=== PATIENT | male | born 1945 | race Caucasian/White ===

== ENCOUNTER 2021-05-14 08:40 | Day surgery (SDC) | payer OTHER, MEDICAID ==
[~2021-05-14] VITALS: Ht 175.3 cm; Wt 79.0 kg
[~2021-05-14 08:40] MED LIST: ACET325T21 PO; ALEN70TA71 PO; AMLO-186 PO; APIX5TAB PO; ATOR40TA59 PO; BACL10TA PO; BREX2TAB PO; BUDE0.5A NEB; BUME1TAB3 PO; CIPROFLOXACIN 0.3% OPHTH SOLUTION 5ML BOTTLE. OS ONE; DOCU-148 PO; DULO30CA2 PO; Diclofenac Sodium TP; FERR325T72 PO; GABA300C18 PO; IPRA3AMP29 NEB; ISOS30TA68 PO; IV RINGERS,LACTATED 1000ML 1,000 ML IV SCH; LEVO750T5 PO; LIDOCAINE 2% JELLY 6ML IN APPLICATOR. OS ONE; LOSA-73 PO; MAGN400T5 PO; METO50TA6 PO; OXYC15TA61 PO; PANT40TA77 PO; PRAM0.255 PO; PROPARACAINE 0.5% OPHTH SOLUTION 15ML BOTTLE. OS ONE; SULF500T PO; TIZA4TAB2 PO; TOFA11TA PO; TRAZ-123 PO
[2021-05-14] MEDS: CYCLOPENTOLATE 2% OPHTH SOLUTION 2ML BOTTLE. OS SCH ×3 (09:28→09:44)
[2021-05-14] MEDS: PHENYLEPHRINE 10% OPHTH SOLUTION 5ML BOTTLE. OS SCH ×3 (09:28→09:44)
[2021-05-14] MEDS ORDERED: LIDOCAINE 1%/PHENYLEPH 1.5% PF OPHTH 1 ML VIAL. ONE (10:58)
[2021-05-14] MEDS ORDERED: NEO/POLYMYX/DEXAMETH OPHTH OINTMENT 3.5GM TUBE. ONE (10:58)
[2021-05-14] MEDS ORDERED: CHONDROIT-SOD-HYALURONATE KIT. ONE (10:59)
[2021-05-14] MEDS ORDERED: CHONDROITIN-SOD-HYALURONATE 0.5 ML DISP.SYRIN. ONE (10:59)
[2021-05-14] MEDS ORDERED: TRYPAN BLUE 0.06% INTRAOCULAR 0.5 ML SYRINGE. IO ONE (11:38)
[2021-05-14 12:02] VITALS: BP 158/94
--- NOTE | 2021-05-14 12:47 | OP ---
DATE OF SURGERY: 05/14/2021 PREOPERATIVE DIAGNOSIS: Incipient cataract of the left eye. PROCEDURE: Phacoemulsification with posterior chamber intraocular lens implantation with Trypan blue staining. SURGEON: Alexi Polanco MD MEDICATIONS: Topical with monitored anesthesia care. DESCRIPTION OF PROCEDURE: The left eye was prepped with Betadine in the usual sterile fashion and draped. A paracentesis was performed followed by instillation of preservative-free phenylephrine admixed with balanced salt solution and lidocaine. A temporal clear corneal incision was made and air was injected into the anterior chamber. Trypan blue was used to stain the anterior capsule as there was poor visualization and particular of the peripheral lens where the capsulorrhexis was to be performed. The blue and air was evacuated with Viscoat and a capsulorrhexis was then adequately visualized and performed, followed by hydrodissection. The phacoemulsification handpiece was used to remove the nucleus in a modified stop and chop fashion. The I/A handpiece was used to remove the remainder of the cortex. Viscoelastic was injected in the anterior chamber and the capsular bag, and an Inocente model SN60WF with a power of 19.5 diopters was placed into the capsular bag. Balanced salt solution was used to hydrate the corneal wounds and the viscoelastic evacuated with the IA handpiece. Once no leak was noted, Maxitrol was placed on the eye and the eye shielded and the patient was sent to the recovery room uneventfully. GONZÁLEZ ZUNIGA: Leonor TID: [id number]
== END 2021-05-14 12:53 | disposition home or self-care (01) ==
LOC: SURG 08:40
PROVIDERS: ATTEND Ophthalmology
DX: H25.092 Other age-related incipient cataract, left eye (principal); I13.0 Hypertensive heart and chronic kidney disease with heart failure and stage 1 through stage 4 chronic kidney disease, or unspecified chronic kidney disease; I50.9 Heart failure, unspecified; N18.9 Chronic kidney disease, unspecified; I48.91 Unspecified atrial fibrillation; E78.00 Pure hypercholesterolemia, unspecified; J44.9 Chronic obstructive pulmonary disease, unspecified; K21.9 Gastro-esophageal reflux disease without esophagitis; M06.9 Rheumatoid arthritis, unspecified; F32.9 Major depressive disorder, single episode, unspecified; Z87.891 Personal history of nicotine dependence; Z79.899 Other long term (current) drug therapy; Z98.890 Other specified postprocedural states; Z72.89 Other problems related to lifestyle
CPT/HCPCS: 66984; J0171; J0690; J1580; J3490; V2632

== ENCOUNTER 2021-05-21 10:37 | Day surgery (SDC) | payer OTHER, MEDICAID ==
[~2021-05-21] VITALS: Ht 175.3 cm; Wt 79.0 kg
[~2021-05-21 10:37] MED LIST changes: +CIPROFLOXACIN 0.3% OPHTH SOLUTION 5ML BOTTLE. OD ONE; -CIPROFLOXACIN 0.3% OPHTH SOLUTION 5ML BOTTLE. OS ONE; +CYCLOPENTOLATE 1% OPHTH SOLUTION 2ML BOTTLE. OD SCH; -IV RINGERS,LACTATED 1000ML 1,000 ML IV SCH; +LIDOCAINE 2% JELLY 6ML IN APPLICATOR. OD ONE; -LIDOCAINE 2% JELLY 6ML IN APPLICATOR. OS ONE; +PROPARACAINE 0.5% OPHTH SOLUTION 15ML BOTTLE. OD ONE; -PROPARACAINE 0.5% OPHTH SOLUTION 15ML BOTTLE. OS ONE
[2021-05-21] MEDS ORDERED: NEO/POLYMYX/DEXAMETH OPHTH OINTMENT 3.5GM TUBE. ONE (10:45)
[2021-05-21] MEDS ORDERED: CHONDROIT-SOD-HYALURONATE KIT. ONE (10:45)
[2021-05-21] MEDS ORDERED: BALANCED SALT IRRIG OPHTH SOLN 15 ML BOTTLE. ONE (10:45)
[2021-05-21] MEDS ORDERED: LIDOCAINE 1%/PHENYLEPH 1.5% PF OPHTH 1 ML VIAL. ONE (10:45)
[2021-05-21] MEDS ORDERED: LIDOCAINE 2% JELLY 6ML IN APPLICATOR. ONE (10:45)
[2021-05-21] MEDS ORDERED: CHONDROITIN-SOD-HYALURONATE 0.5 ML DISP.SYRIN. ONE (10:46)
[2021-05-21] MEDS: PHENYLEPHRINE 10% OPHTH SOLUTION 5ML BOTTLE. OD SCH ×3 (11:04→11:17)
[2021-05-21] MEDS: CYCLOPENTOLATE 2% OPHTH SOLUTION 2ML BOTTLE. OD SCH ×3 (11:05→11:17)
[2021-05-21] MEDS ORDERED: IV RINGERS,LACTATED 1000ML 1,000 ML IV SCH (11:30)
[2021-05-21 13:27] VITALS: BP 188/85
--- NOTE | 2021-05-21 16:13 | OP ---
DATE OF SURGERY: 05/21/2021 PREOPERATIVE DIAGNOSIS: Cataract to the right eye. PROCEDURE: Phacoemulsification with posterior chamber intraocular lens implantation of the right eye. INDICATIONS: Painless progressive visual loss and visually significant cataract and difficulty reading. SURGEON: Alexi Polanco MD ANESTHESIA: Topical with monitored anesthesia care. DESCRIPTION OF PROCEDURE: The right eye was prepped with Betadine in the usual sterile fashion and draped. A paracentesis was performed followed by instillation of preservative-free phenylephrine admixed with lidocaine and balanced salt solution. A temporal clear corneal incision was made followed by instillation of Viscoat. A capsulorrhexis was performed followed by hydrodissection. The nucleus was removed in a modified stop and chop fashion. The I/A handpiece was used to remove the cortex and viscoelastic was injected into the capsular bag. An Inocente model SN60WF with a power of 22.5 diopters was placed into the capsular bag. Balanced salt solution was used to hydrate the corneal wounds and the viscoelastic evacuated with the I/A handpiece. Once no leak was noted, Maxitrol was placed on the eye and the eye shielded and the patient was sent to the recovery room uneventfully. SAM/FAROOQ DR: Leonor TID: [id number]
== END 2021-05-21 13:50 | disposition home or self-care (01) ==
LOC: SURG 10:37
PROVIDERS: ATTEND Ophthalmology
DX: H25.89 Other age-related cataract (principal); I48.91 Unspecified atrial fibrillation; E78.00 Pure hypercholesterolemia, unspecified; J44.9 Chronic obstructive pulmonary disease, unspecified; K21.9 Gastro-esophageal reflux disease without esophagitis; M19.90 Unspecified osteoarthritis, unspecified site; F32.9 Major depressive disorder, single episode, unspecified; I11.0 Hypertensive heart disease with heart failure; I50.9 Heart failure, unspecified; Z87.891 Personal history of nicotine dependence; Z79.899 Other long term (current) drug therapy; Z98.890 Other specified postprocedural states
CPT/HCPCS: 66984; J0171; J0690; J1580; J3490; V2632

== ENCOUNTER 2021-06-05 19:54 | Emergency (ER) | payer OTHER, MEDICAID ==
[~2021-06-05] VITALS: Ht 177.8 cm; Wt 81.8 kg
[2021-06-05 19:54] VITALS: BP 157/92
[~2021-06-05 19:54] MED LIST changes: -CIPROFLOXACIN 0.3% OPHTH SOLUTION 5ML BOTTLE. OD ONE; -CYCLOPENTOLATE 1% OPHTH SOLUTION 2ML BOTTLE. OD SCH; -LIDOCAINE 2% JELLY 6ML IN APPLICATOR. OD ONE; -PROPARACAINE 0.5% OPHTH SOLUTION 15ML BOTTLE. OD ONE
--- NOTE | 2021-06-05 20:02 | PHYS DOC ---
Past Medical History Past Medical History: A-Fib, Arthritis, CAD, COPD, Depression, GERD, High Cholesterol, Heart Disease, Hypertension, Other Additional Past Medical Histor: COVID, requires supplemental O2 at 3L NC Past Surgical History: Other Additional Past Surgical Histo: PICC Smoking Status: Former Smoker Alcohol Use: None Drug Use: None General Adult EDM: Chief Complaint: PICC line malfunction HPI: HPI: Patient is a 75-year-old male with past medical history of COPD and Covid pneumonia who presents via EMS from [facility] after his PICC line to right upper arm was accidentally cut by long term staff while changing his bandages. EMS reports the staff had tried to control active bleeding from the line with a "trauma pad ". Reports upon their arrival bleeding was continuing despite use of the pad and therefore a pressure dressing was placed. Patient reportedly is on Xarelto. Patient receives empiric antibiotics through this PICC line. Patient denies any other complaint. Review of Systems: Review of Systems: Constitutional: Denies fever or chills Eyes: Denies redness or eye pain HENT: Denies nasal congestion or sore throat Respiratory: Denies cough; reports chronic shortness of breath Cardiovascular: Denies chest pain or palpitations GI: Denies abdominal pain, nausea, or vomiting : Denies dysuria or hematuria Musculoskeletal: Denies back pain or joint pain Integument: Denies rash or skin lesions Neurologic: Denies headache, focal weakness or sensory changes Complete systems were reviewed and found to be within normal limits, except as documented in this note. Heart Score: C/O Chest Pain: N/A Allergies: Allergies: Allergies Coded Allergies Type Severity Reaction Last Updated Verified No Known Drug Allergies 05/14/21 No Physical Exam: PE: Constitutional: Well developed, well nourished, no acute distress, non-toxic appearance HENT: Normocephalic, atraumatic Eyes: Conjunctiva normal, no discharge Neck: Normal range of motion, supple Lungs & Thorax: No respiratory distress, equal chest rise and fall Skin: Warm, dry, no erythema, no rash, healing ecchymosis noted to right upper arm Extremities: No tenderness, ROM intact, no edema, right upper arm PICC line in place with cut external portion. NO sutures in place holding line. Line clamped with kari clamp to control active bleeding from line, insertion site cleaned and PICC line removed. PICC appears intact, Pressure dressing placed. Neurologic: Alert and oriented no focal deficits noted Psychologic: Affect normal, judgment normal EKG: EKG: [] Radiology/Procedures: Radiology/Procedures: [] Course & Med Decision Making: Course & Med Decision Making Patient presents with bleeding from PICC line that had accidentally been cut by long term staff. A pressure dressing was placed by EMS. Upon arrival the dressing was taken down a Kari clamp was utilized to clamp the PICC line to prevent further bleeding. Insertion site was cleaned and PICC line was successfully removed. A pressure dressing was placed without signs of further active bleeding. Patient stable for discharge back to long term and can contact PICC team at site for reinsertion if required. Patient stable for discharge with outpatient follow-up with PCP. ER nursing called report to [facility]. Additionally discussed findings and plan with patient, who acknowledges understanding and agreement. Lauraon Disclaimer: Dragcayetano Disclaimer: This electronic medical record was generated, in whole or in part, using a voice recognition dictation system. Additional Procedures Progress PICC line removal: Verbal consent obtained. Time out performed. Hand hygiene utilized. Kari clamp placed on distal portion of PICC line. ChloraPrep utilized to clean insertion site to right upper arm. PICC line successfully removed intact without difficulty. A sterile petroleum gauze placed with folded 4 x 4 and Coban for pressure dressing. No further active bleeding appreciated. Patient tolerated procedure well and without difficulty. Departure Departure Impression: Primary Impression: PIC line (peripherally inserted central catheter) removal Disposition: HOME / SELF CARE / HOMELESS (back to [facility]) Condition: IMPROVED Referrals: BLAS KENNY MD (PCP) Patient Instructions: PICC, Removal and Care After Additional Instructions: In the future if PICC line has been accidentally cut please clamped with a hemostat and remove PICC line from patient's body and place a pressure dressing. This will help prevent further bleeding. Contact your PICC line team for replacement if necessary. JANETTE BRNUER DO Jun 05, 2021 20:02
== END 2021-06-05 20:35 | disposition home or self-care (01) ==
LOC: ER 19:54
DX: Z45.2 Encounter for adjustment and management of vascular access device (principal); I48.91 Unspecified atrial fibrillation; M19.90 Unspecified osteoarthritis, unspecified site; I25.10 Atherosclerotic heart disease of native coronary artery without angina pectoris; J44.9 Chronic obstructive pulmonary disease, unspecified; F32.9 Major depressive disorder, single episode, unspecified; K21.9 Gastro-esophageal reflux disease without esophagitis; E78.00 Pure hypercholesterolemia, unspecified; I11.9 Hypertensive heart disease without heart failure
CPT/HCPCS: 99285